=== PATIENT | female | born 1990 | race American Indian/Alaskan Native ===

== ENCOUNTER 2017-08-29 13:58 | Emergency (ER) | payer MEDICAID ==
[2017-08-29 16:01] LABS: Basophils % (Auto) 0.4 % (0.0-1.8); Eosinophils # (Auto) 0.1 K/mm3 (0.0-0.4); Eosinophils % (Auto) 1.4 % (0.0-4.3); Hematocrit 37.2 % (30.3-42.9); Hemoglobin 12.3 gm/dl (10.1-14.3); Lymphocytes # (Auto) 2.5 K/mm3 (1.2-5.4); Mean Corpuscular HGB Conc 33 % (30-34); Mean Corpuscular Hemoglobin 29 pg (28-32); Mean Corpuscular Volume 88 fl (79-97); Monocytes # (Auto) 0.6 K/mm3 (0.0-0.8); Platelet Count 180 K/mm3 (140-440); Red Blood Count 4.24 M/mm3 (3.65-5.03); Red Cell Distribution Width 13.4 % (13.2-15.2)
[2017-08-29 16:20] LABS: Alanine Aminotransferase 10 units/L (7-56); BUN/Creatinine Ratio 26; Blood Urea Nitrogen 13 mg/dL (7-17); Calcium 9.1 mg/dL (8.4-10.2); Hemolysis Index 27
[2017-08-29 16:20] LABS: Bacteria,Urine 3+ /HPF (Negative); Bilirubin,Urine NEG (Negative); Blood,Urine NEG (Negative); Color,Urine Yellow (Yellow); Hyaline Casts,Urine 1 /LPF; Mucus,Urine FEW /HPF; Nitrite,Urine NEG (Negative); Protein,Urine <15 mg/dL mg/dL (Negative)
--- NOTE | 2017-08-30 00:46 | Emergency Department Report ---
ED Abdominal Pain HPI - General Chief Complaint: Abdominal Pain Stated Complaint: ABDOMINAL PAIN Time Seen by Provider: 08/30/17 00:40 Source: patient Mode of arrival: Ambulatory Limitations: No Limitations - History of Present Illness Initial Comments: pt patient is a 26-year-old -[place] female who presents for abdominal pain 3 weeks pain described as aching and intermittent patient states intermittent nausea and vomiting primarily in a.m. there is no fever no chills no back pain no dysuria no urinary frequency last menstrual cycle 5 weeks ago patient states I may be patient is tolerating by mouth intake without nausea vomiting at this time MD Complaint: abdominal pain Onset/Timin -: week(s) Location: diffuse Radiation: none Migration to: no migration Severity: mild Severity scale (0 -10): 3 Quality: aching Consistency: intermittent Improves With: nothing Worsens With: nothing Associated Symptoms: nausea, vomiting. denies: diarrhea, fever, chills, constipation, dysuria, hematemesis, hematochezia, melena, hematuria, anorexia, syncope Treatments Prior to Arrival: NSAIDs - Related Data LMP Date: 08/02/17 LMP (females 10-50): 3 weeks Previous Rx's Medication Instructions Recorded Last Taken Type Ibuprofen [Motrin 800 MG tab] 800 mg PO Q8HR PRN #30 tablet 12/07/15 Unknown Rx Sulfamethoxazole/Trimethoprim 1 each PO BID #20 tablet 12/07/15 Unknown Rx [Bactrim DS TAB] metroNIDAZOLE [Flagyl] 500 mg PO Q12HR #14 tab 12/07/15 Unknown Rx Acetaminophen 650 mg PO QID PRN #30 tablet 08/30/17 Unknown Rx Allergies Allergy/AdvReac Type Severity Reaction Status Date / Time oranges Allergy Swelling Uncoded 12/07/15 13:17 ED Review of Systems ROS: Stated complaint: ABDOMINAL PAIN Other details as noted in HPI Constitutional: denies: chills, fever Eyes: denies: eye pain, eye discharge, vision change ENT: denies: ear pain, throat pain Respiratory: denies: cough, shortness of breath, wheezing Cardiovascular: denies: chest pain, palpitations Endocrine: no symptoms reported Gastrointestinal: nausea, vomiting. denies: abdominal pain, diarrhea, constipation, hematemesis, melena, hematochezia Genitourinary: denies: urgency, dysuria, discharge Musculoskeletal: denies: back pain, joint swelling, arthralgia Skin: denies: rash, lesions Neurological: denies: headache, weakness, paresthesias Psychiatric: denies: anxiety, depression Hematological/Lymphatic: denies: easy bleeding, easy bruising ED Past Medical Hx - Past Medical History Previous Medical History?: Yes Hx Asthma: Yes Additional medical history: Lupus - Surgical History Past Surgical History?: Yes Additional Surgical History: IUD removed - Social History Smoking Status: Current Every Day Smoker Substance Use Type: Alcohol - Medications Home Medications: Home Medications Medication Instructions Recorded Confirmed Last Taken Type Ibuprofen [Motrin 800 MG tab] 800 mg PO Q8HR PRN #30 tablet 12/07/15 Unknown Rx Sulfamethoxazole/Trimethoprim 1 each PO BID #20 tablet 12/07/15 Unknown Rx [Bactrim DS TAB] metroNIDAZOLE [Flagyl] 500 mg PO Q12HR #14 tab 12/07/15 Unknown Rx Acetaminophen 650 mg PO QID PRN #30 tablet 08/30/17 Unknown Rx ED Physical Exam - General Limitations: No Limitations General appearance: alert, in no apparent distress - Head Head exam: Present: atraumatic, normocephalic - Eye Eye exam: Present: normal appearance - ENT ENT exam: Present: mucous membranes moist - Neck Neck exam: Present: normal inspection - Respiratory Respiratory exam: Present: normal lung sounds bilaterally. Absent: respiratory distress - Cardiovascular Cardiovascular Exam: Present: regular rate, normal rhythm. Absent: systolic murmur, diastolic murmur, rubs, gallop - GI/Abdominal GI/Abdominal exam: Present: soft, normal bowel sounds. Absent: distended, tenderness, guarding, rebound, rigid, bruit, hernia - Rectal Rectal exam: Present: deferred - Extremities Exam Extremities exam: Present: normal inspection - Back Exam Back exam: Present: normal inspection - Neurological Exam Neurological exam: Present: alert, oriented X3, CN II-XII intact, normal gait, reflexes normal - Psychiatric Psychiatric exam: Present: normal affect, normal mood - Skin Skin exam: Present: warm, dry, intact, normal color. Absent: rash ED Course Vital Signs 08/29/17 14:58 Temperature 98.4 F Pulse Rate 83 Respiratory 20 Rate Blood Pressure 90/60 O2 Sat by Pulse 100 Oximetry ED Medical Decision Making - Lab Data Result diagrams: 08/29/17 15:05 01/09/18 15:05 Laboratory Tests 08/29/17 08/29/17 08/29/17 15:05 15:05 15:05 WBC 7.6 RBC 4.24 Hgb 12.3 Hct 37.2 MCV 88 MCH 29 MCHC 33 RDW 13.4 Plt Count 180 Lymph % (Auto) 32.0 [place] % (Auto) 8.0 H Eos % (Auto) 1.4 Baso % (Auto) 0.4 Lymph # 2.5 [place] # 0.6 Eos # 0.1 Baso # 0.0 Seg Neutrophils % 58.2 Seg Neutrophils # 4.5 Sodium 134 L Potassium 3.9 Chloride 99.9 Carbon Dioxide 22 Anion Gap 16 BUN 13 Creatinine 0.5 L Estimated GFR > 60 BUN/Creatinine Ratio 26 Glucose 84 Calcium 9.1 Total Bilirubin 0.30 AST 13 ALT 10 Alkaline Phosphatase 52 Total Protein 7.0 Albumin 4.0 Albumin/Globulin Ratio 1.3 HCG, Quant 56559 H Urine Color Urine Turbidity Urine pH Ur Specific [place] Urine Protein Urine Glucose (UA) Urine Ketones Urine Blood Urine Nitrite Urine Bilirubin Urine Urobilinogen Ur Leukocyte Esterase Urine WBC (Auto) Urine RBC (Auto) U Epithel Cells (Auto) Urine Bacteria (Auto) Hyaline Casts Urine Mucus 08/29/17 15:48 WBC RBC Hgb Hct MCV MCH MCHC RDW Plt Count Lymph % (Auto) [place] % (Auto) Eos % (Auto) Baso % (Auto) Lymph # [place] # Eos # Baso # Seg Neutrophils % Seg Neutrophils # Sodium Potassium Chloride Carbon Dioxide Anion Gap BUN Creatinine Estimated GFR BUN/Creatinine Ratio Glucose Calcium Total Bilirubin AST ALT Alkaline Phosphatase Total Protein Albumin Albumin/Globulin Ratio HCG, Quant Urine Color Yellow Urine Turbidity Clear Urine pH 7.0 Ur Specific [place] 1.017 Urine Protein <15 mg/dl Urine Glucose (UA) Neg Urine Ketones Neg Urine Blood Neg Urine Nitrite Neg Urine Bilirubin Neg Urine Urobilinogen 2.0 Ur Leukocyte Esterase Tr Urine WBC (Auto) 2.0 Urine RBC (Auto) 1.0 U Epithel Cells (Auto) 4.0 Urine Bacteria (Auto) 3+ Hyaline Casts 1 Urine Mucus Few - Medical Decision Making pt patient is a 26-year-old -[place] female who presents for abdominal pain 3 weeks pain described as aching and intermittent patient states intermittent nausea and vomiting primarily in a.m. there is no fever no chills no back pain no dysuria no urinary frequency last menstrual cycle 5 weeks ago patient states I may be patient is tolerating by mouth intake without nausea vomiting at this time exam: pt appears well nontoxic well hydrated and well nourished pt is eating at this time without n/v bs normal x 4 qds no rebound no bruit no hernia no fluid shift, no cva tenderness pt denies vaginal discharge no bleeding no dysuria frequency or urgency, cmp: normal, cbc: normal , ua: normal, hc pos preg test , plan: follow up with [facility] Dr. Ordonez, in 2-3 day or obgyn of choice to establish care, pt verbalized agreement and understanding of same, there is no vaginal bleeding non cramping no vaginal discharge no back pain, all symptoms are relieved at this time, per patient. Critical care attestation.: If time is entered above; I have spent that time in minutes in the direct care of this critically ill patient, excluding procedure time. ED Disposition Clinical Impression: Positive test Disposition: TO HOME OR SELFCARE Is pt being admited?: No Does the pt Need Aspirin: No Condition: Good Instructions: Abdominal Pain (ED) Prescriptions: Acetaminophen 650 mg PO QID PRN #30 tablet PRN Reason: pain Referrals: URIEL ORDONEZ MD [Staff Physician] - 3-5 Days Forms: Work/School Release Form(ED) Time of Disposition: 00:51
[2017-08-30 03:31] VITALS: BP 125/73
== END 2017-08-30 01:15 | disposition home or self-care (01) ==
LOC: ED 13:58
DX: O26.891 Other specified pregnancy related conditions, first trimester (principal); R11.2 Nausea with vomiting, unspecified; O99.331 Smoking (tobacco) complicating pregnancy, first trimester; Z91.018 Allergy to other foods; Z3A.01 Less than 8 weeks gestation of pregnancy
CPT/HCPCS: 36415; 80053; 81001; 84702; 85025; 99283

== ENCOUNTER 2017-08-31 14:03 | Emergency (ER) | payer MEDICAID ==
[2017-08-31] MEDS ORDERED: ZOFRAN ODT PO ONE (15:23)
[2017-08-31 21:07] LABS: Basophils % (Auto) 0.5 % (0.0-1.8); Eosinophils % (Auto) 0.4 % (0.0-4.3); Hematocrit 41.5 % (30.3-42.9); Hemoglobin 13.8 gm/dl (10.1-14.3); Lymphocytes # (Auto) 2.1 K/mm3 (1.2-5.4); Lymphocytes % (Auto) 28.9 % (13.4-35.0); Mean Corpuscular HGB Conc 33 % (30-34); Mean Corpuscular Hemoglobin 29 pg (28-32); Mean Corpuscular Volume 88 fl (79-97); Monocytes # (Auto) 0.6 K/mm3 (0.0-0.8); Monocytes % (Auto) 8.8 % (0.0-7.3); Platelet Count 204 K/mm3 (140-440); Red Cell Distribution Width 13.5 % (13.2-15.2)
[2017-08-31 21:37] LABS: Alanine Aminotransferase 10 units/L (7-56); Albumin 4.4 g/dL (3.9-5); BUN/Creatinine Ratio 24; Blood Urea Nitrogen 12 mg/dL (7-17); Calcium 9.7 mg/dL (8.4-10.2); Hemolysis Index 13
[2017-08-31 22:39] LABS: Bilirubin,Urine NEG (Negative); Blood,Urine SM (Negative); Color,Urine Yellow (Yellow); Mucus,Urine 1+ /HPF; Nitrite,Urine NEG (Negative); Protein,Urine <15 mg/dL mg/dL (Negative); RBC,Urine < 1.0 /HPF (0.0-6.0)
[2017-09-01] MEDS ORDERED: ZOFRAN ODT ONE (02:55)
[2017-09-01] MEDS ORDERED: ZOFRAN ODT PO ONE (03:13)
[2017-09-01] MEDS ORDERED: REGLAN IV ONE (10:58)
[2017-09-01] MEDS ORDERED: D5NS 1,000 ML IV SCH (11:00)
--- NOTE | 2017-09-01 13:33 | Emergency Department Report ---
Vomiting/Diarrhea - HPI Chief Complaint: Nausea/Vomiting/Diarrhea Stated Complaint: THROWING UP/ Time Seen by Provider: 09/01/17 10:54 Duration: 3 Days Severity: moderate Nausea/Vomiting Severity: Moderate Diarrhea Severity: None Pain Severity: None Symptoms: No Watery Diarrhea, No Fever, No Able to Tolerate Fluids, No Recent Unusual Foods, No Recent use of Antibiotics Other History: Patient is a 26-year-old F [place] female who is presenting with nausea and vomiting for the past several days. Patient is 6 weeks . Patient denies any vaginal discharge or vaginal bleeding dysuria at this time. Patient is just unable to keep anything down. 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 - Surgical History Additional Surgical History: IUD removed - Social History Smoking Status: Former Smoker Substance Use Type: None - Medications Home Medications: Home Medications Medication Instructions Recorded Confirmed Last Taken Type Ibuprofen [Motrin 800 MG tab] 800 mg PO Q8HR PRN #30 tablet 12/07/15 Unknown Rx Sulfamethoxazole/Trimethoprim 1 each PO BID #20 tablet 12/07/15 Unknown Rx [Bactrim DS TAB] metroNIDAZOLE [Flagyl] 500 mg PO Q12HR #14 tab 12/07/15 Unknown Rx Acetaminophen 650 mg PO QID PRN #30 tablet 08/30/17 Unknown Rx Ondansetron [Zofran Odt] 4 mg PO Q8HR #12 tab.rapdis 09/01/17 Unknown Rx Vomiting Diarrhea Exam - Exam General: Vital signs noted. No distress. Alert and acting appropriately. HEENT: Yes Moist Mucous Membranes, No Pharyngeal Erythema, No Pharyngeal Exudates, No Rhinorrhea, No Conjuctival Injection, No Frontal Tenderness, No Maxillary Tenderness Neck: No Adenopathy, No Rigidity Lungs: Yes Clear Lung Sounds, Yes Good Air Exchange, No Wheezes, No Stridor, No Cough, No Nasal Flaring, No Retractions, No Use of Accessory Muscles Heart exam: Regular: Yes, Murmur: No, Tachycardia: No Abdomen: Tenderness: No, Peritoneal Signs: No, Distention: No, Hyperactive Bowel sounds: No Skin exam: Rash: No, Edema: No, Normal turgor: Yes Neurologic: Alert and oriented, no deficits. Musculoskeletal: Unremarkable. ED Course Vital Signs 08/31/17 08/31/17 09/01/17 15:12 17:50 07:04 Temperature 98.2 F 98.1 F Pulse Rate 88 65 81 Respiratory 16 18 Rate Blood Pressure 112/67 98/69 O2 Sat by Pulse 98 100 100 Oximetry 09/01/17 09/01/17 09/01/17 07:09 07:12 08:00 Temperature 98.8 F Pulse Rate 71 Respiratory 20 18 Rate Blood Pressure 101/68 O2 Sat by Pulse Oximetry ED Medical Decision Making - Lab Data Result diagrams: 08/31/17 20:42 08/31/17 20:42 - Medical Decision Making Patient received several doses of antiemetics which has helped the vomiting patient did show ketones in her urine this is most likely the cause of her nausea vomiting. Patient is started on D5 normal saline bolus and will be discharged home. Critical care attestation.: If time is entered above; I have spent that time in minutes in the direct care of this critically ill patient, excluding procedure time. ED Disposition Clinical Impression: Hyperemesis arising during , Ketonuria, Positive test Disposition: DC-01 TO HOME OR SELFCARE Is pt being admited?: No Does the pt Need Aspirin: No Condition: Fair Prescriptions: Ondansetron [Zofran Odt] 4 mg PO Q8HR #12 tab.rapdis Referrals: PRIMARY CARE, [Primary Care Provider] - 3-5 Days
[2017-09-01 14:52] VITALS: BP 106/57
== END 2017-09-01 14:58 | disposition home or self-care (01) ==
LOC: ED 14:03
DX: O21.0 Mild hyperemesis gravidarum (principal); Z3A.01 Less than 8 weeks gestation of pregnancy; R82.4 Acetonuria; J45.909 Unspecified asthma, uncomplicated; Z87.891 Personal history of nicotine dependence
CPT/HCPCS: 36415; 80053; 81001; 84703; 85025; 96361; 96374; 99283; J2765; J7042; Q0162

== ENCOUNTER 2017-09-06 10:40 | Emergency (ER) | payer SELFPAY ==
[2017-09-06 11:07] VITALS: BP 104/63
[2017-09-06] MEDS ORDERED: NACL 0.9% 1000 ML 1,000 ML IV ONE (12:14)
[2017-09-06] MEDS ORDERED: ZOFRAN IV ONE (12:14)
[2017-09-06 13:00] LABS: Basophils % (Auto) 0.3 % (0.0-1.8); Eosinophils % (Auto) 0.3 % (0.0-4.3); Hematocrit 38.4 % (30.3-42.9); Lymphocytes % (Auto) 27.9 % (13.4-35.0); Mean Corpuscular HGB Conc 34 % (30-34); Mean Corpuscular Hemoglobin 30 pg (28-32); Mean Corpuscular Volume 88 fl (79-97); Monocytes # (Auto) 0.8 K/mm3 (0.0-0.8); Monocytes % (Auto) 11.1 % (0.0-7.3); Platelet Count 200 K/mm3 (140-440); Red Blood Count 4.39 M/mm3 (3.65-5.03); Red Cell Distribution Width 13.1 % (13.2-15.2)
--- NOTE | 2017-09-06 13:02 | Emergency Department Report ---
ED General Adult HPI - General Chief complaint: Nausea/Vomiting/Diarrhea Stated complaint: N/V Time Seen by Provider: 09/06/17 12:09 Source: patient Mode of arrival: Wheelchair Limitations: No Limitations - History of Present Illness Initial comments: There is a 26-year-old -[place] female presents for nausea and vomiting for past 6 weeks patient states 7 weeks at this point there is no no fever no chills patient seen in ED 3 for same complaint however cannot get anti -emetics secondary to financial concerns patient states symptoms are intermittent and exacerbated by by mouth intake last by mouth intake this a.m. has not vomiting 2 hours ago again no fever no chills no back pain or vaginal discharge no vaginal bleeding cramping patient is pending [employer] follow up states she does not have insurance or medicaid at this point. Onset/Timin -: week(s) Location: abdomen Radiation: non-radiation Severity scale (0 -10): 4 Quality: other (n/v ) Consistency: constant Improves with: other (phenergan / zofran) Worsens with: eating Associated Symptoms: nausea/vomiting. denies: confusion, chest pain, cough, diaphoresis, fever/chills, headaches, loss of appetite, malaise, rash, seizure, shortness of breath, syncope, weakness Treatments Prior to Arrival: none - Related Data Previous Rx's Medication Instructions Recorded Last Taken Type Ibuprofen [Motrin 800 MG tab] 800 mg PO Q8HR PRN #30 tablet 12/07/15 Unknown Rx Sulfamethoxazole/Trimethoprim 1 each PO BID #20 tablet 12/07/15 Unknown Rx [Bactrim DS TAB] metroNIDAZOLE [Flagyl] 500 mg PO Q12HR #14 tab 12/07/15 Unknown Rx Acetaminophen 650 mg PO QID PRN #30 tablet 08/30/17 Unknown Rx Ondansetron [Zofran Odt] 4 mg PO Q8HR #12 tab.rapdis 09/01/17 Unknown Rx Promethazine [Phenergan] 25 mg [place] BID PRN #12 supp.rect 09/06/17 Unknown Rx Allergies Allergy/AdvReac Type Severity Reaction Status Date / Time oranges Allergy Swelling Uncoded 08/31/17 15:12 ED Review of Systems ROS: Stated complaint: N/V Other details as noted in HPI Constitutional: denies: chills, fever Eyes: denies: eye pain, eye discharge, vision change ENT: denies: ear pain, throat pain Respiratory: denies: cough, shortness of breath, wheezing Cardiovascular: denies: chest pain, palpitations Endocrine: no symptoms reported Gastrointestinal: nausea, vomiting. 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 - Surgical History Additional Surgical History: IUD removed - Social History Smoking Status: Never Smoker Substance Use Type: None - Medications Home Medications: Home Medications Medication Instructions Recorded Confirmed Last Taken Type Ibuprofen [Motrin 800 MG tab] 800 mg PO Q8HR PRN #30 tablet 12/07/15 Unknown Rx Sulfamethoxazole/Trimethoprim 1 each PO BID #20 tablet 12/07/15 Unknown Rx [Bactrim DS TAB] metroNIDAZOLE [Flagyl] 500 mg PO Q12HR #14 tab 12/07/15 Unknown Rx Acetaminophen 650 mg PO QID PRN #30 tablet 08/30/17 Unknown Rx Ondansetron [Zofran Odt] 4 mg PO Q8HR #12 tab.rapdis 09/01/17 Unknown Rx Promethazine [Phenergan] 25 mg [place] BID PRN #12 supp.rect 09/06/17 Unknown Rx ED Physical Exam - General Limitations: No Limitations General appearance: alert, in no apparent distress - Head Head exam: Present: atraumatic, normocephalic - Eye Eye exam: Present: normal appearance - ENT ENT exam: Present: mucous membranes moist - Neck Neck exam: Present: normal inspection - Respiratory Respiratory exam: Present: normal lung sounds bilaterally. Absent: respiratory distress, wheezes, stridor - Cardiovascular Cardiovascular Exam: Present: regular rate, normal rhythm. Absent: systolic murmur, diastolic murmur, rubs, gallop - GI/Abdominal GI/Abdominal exam: Present: soft, normal bowel sounds. Absent: distended, tenderness, guarding, rebound, rigid, mass, bruit, hernia - Rectal Rectal exam: Present: deferred - Extremities Exam Extremities exam: Present: normal inspection, full ROM. Absent: tenderness - Back Exam Back exam: Present: normal inspection, full ROM. Absent: tenderness, CVA tenderness (R), CVA tenderness (L), muscle spasm, paraspinal tenderness, vertebral tenderness, rash noted - Neurological Exam Neurological exam: Present: alert, oriented X3, CN II-XII intact, normal gait, reflexes normal. Absent: motor sensory deficit - Psychiatric Psychiatric exam: Present: normal affect, normal mood - Skin Skin exam: Present: warm, dry, intact, normal color. Absent: rash ED Course Vital Signs 09/06/17 11:04 Temperature 98.4 F Pulse Rate 80 Respiratory 16 Rate Blood Pressure 104/63 O2 Sat by Pulse 100 Oximetry ED Medical Decision Making - Lab Data Result diagrams: 09/06/17 12:19 09/06/17 12:19 Laboratory Tests 09/06/17 09/06/17 09/06/17 12:19 12:19 12:19 WBC 7.2 RBC 4.39 Hgb 13.0 Hct 38.4 MCV 88 MCH 30 MCHC 34 RDW 13.1 L Plt Count 200 Lymph % (Auto) 27.9 [place] % (Auto) 11.1 H Eos % (Auto) 0.3 Baso % (Auto) 0.3 Lymph # 2.0 [place] # 0.8 Eos # 0.0 Baso # 0.0 Seg Neutrophils % 60.4 Seg Neutrophils # 4.3 Sodium 136 L Potassium 3.7 Chloride 98.0 Carbon Dioxide 22 Anion Gap 20 BUN 11 Creatinine 0.5 L Estimated GFR > 60 BUN/Creatinine Ratio 22 Glucose 78 Calcium 9.4 Total Bilirubin 0.50 AST 11 ALT 7 Alkaline Phosphatase 50 Total Protein 7.0 Albumin 3.9 Albumin/Globulin Ratio 1.3 HCG, Quant 07419 H Urine Color Urine Turbidity Urine pH Ur Specific [place] Urine Protein Urine Glucose (UA) Urine Ketones Urine Blood Urine Nitrite Urine Bilirubin Urine Urobilinogen Ur Leukocyte Esterase Urine WBC (Auto) Urine RBC (Auto) U Epithel Cells (Auto) Urine Bacteria (Auto) Urine Mucus 09/06/17 13:06 WBC RBC Hgb Hct MCV MCH MCHC RDW Plt Count Lymph % (Auto) [place] % (Auto) Eos % (Auto) Baso % (Auto) Lymph # [place] # Eos # Baso # Seg Neutrophils % Seg Neutrophils # Sodium Potassium Chloride Carbon Dioxide Anion Gap BUN Creatinine Estimated GFR BUN/Creatinine Ratio Glucose Calcium Total Bilirubin AST ALT Alkaline Phosphatase Total Protein Albumin Albumin/Globulin Ratio HCG, Quant Urine Color Yellow Urine Turbidity Clear Urine pH 5.0 Ur Specific [place] 1.020 Urine Protein <15 mg/dl Urine Glucose (UA) Neg Urine Ketones 80 Urine Blood Neg Urine Nitrite Neg Urine Bilirubin Neg Urine Urobilinogen 4.0 Ur Leukocyte Esterase Tr Urine WBC (Auto) 6.0 Urine RBC (Auto) 4.0 U Epithel Cells (Auto) 6.0 Urine Bacteria (Auto) 3+ Urine Mucus 3+ - Medical Decision Making pt is currently tolerating po intake without n/v discussed medication phenergan supp / zofran prn for n/v, OBGYN affiliation, pt will follow up Dr Brown. Aburto , will call tomorrow to setup appointment , use phenergan supp or zofran odt prn for n/v , hydrate as directed, and follow up with [employer]AM[employer]ER as directed, pt to complete medicaid processing starting tomorrow. Critical care attestation.: If time is entered above; I have spent that time in minutes in the direct care of this critically ill patient, excluding procedure time. ED Disposition Clinical Impression: Nausea and vomiting during prior to 22 weeks gestation Disposition: TO HOME OR SELFCARE Is pt being admited?: No Does the pt Need Aspirin: No Condition: Good Instructions: Acute Nausea and Vomiting (ED) Prescriptions: Promethazine [Phenergan] 25 mg [place] BID PRN #12 supp.rect PRN Reason: Nausea And Vomiting Referrals: PRIMARY CARE, [Primary Care Provider] - 3-5 Days Forms: Work/School Release Form(ED) Time of Disposition: 14:30
[2017-09-06 13:11] LABS: Alanine Aminotransferase 7 units/L (7-56); Albumin 3.9 g/dL (3.9-5); BUN/Creatinine Ratio 22; Blood Urea Nitrogen 11 mg/dL (7-17); Calcium 9.4 mg/dL (8.4-10.2); Hemolysis Index 11
[2017-09-06 13:23] LABS: Bacteria,Urine 3+ /HPF (Negative); Bilirubin,Urine NEG (Negative); Blood,Urine NEG (Negative); Color,Urine Yellow (Yellow); Mucus,Urine 3+ /HPF; Nitrite,Urine NEG (Negative); Protein,Urine <15 mg/dL mg/dL (Negative)
== END 2017-09-06 15:06 | disposition home or self-care (01) ==
LOC: ED 10:40
DX: O21.9 Vomiting of pregnancy, unspecified (principal); Z3A.01 Less than 8 weeks gestation of pregnancy; Z91.018 Allergy to other foods
CPT/HCPCS: 36415; 80053; 81001; 84702; 85025; 96361; 96374; 99283; J2405; J7030

== ENCOUNTER 2017-09-24 22:51 | Emergency (ER) | payer SELFPAY ==
[2017-09-25] MEDS ORDERED: NACL 0.9% 1000 ML 1,000 ML IV ONE ×2 (00:39→11:30)
[2017-09-25 01:04] LABS: Basophils % (Auto) 0.5 % (0.0-1.8); Eosinophils # (Auto) 0.1 K/mm3 (0.0-0.4); Eosinophils % (Auto) 0.8 % (0.0-4.3); Hematocrit 37.8 % (30.3-42.9); Hemoglobin 12.9 gm/dl (10.1-14.3); Lymphocytes # (Auto) 1.8 K/mm3 (1.2-5.4); Lymphocytes % (Auto) 21.3 % (13.4-35.0); Mean Corpuscular HGB Conc 34 % (30-34); Mean Corpuscular Hemoglobin 30 pg (28-32); Mean Corpuscular Volume 86 fl (79-97); Monocytes # (Auto) 0.7 K/mm3 (0.0-0.8); Monocytes % (Auto) 7.8 % (0.0-7.3); Platelet Count 238 K/mm3 (140-440); Red Blood Count 4.37 M/mm3 (3.65-5.03)
[2017-09-25 01:14] LABS: INR 0.97 (0.87-1.13)
[2017-09-25 01:15] LABS: Partial Thromboplastin Time 28.2 Sec. (24.2-36.6)
[2017-09-25 01:25] LABS: Alanine Aminotransferase 9 units/L (7-56); Albumin 3.7 g/dL (3.9-5); BUN/Creatinine Ratio 20; Blood Urea Nitrogen 8 mg/dL (7-17); Hemolysis Index 6; Lipase 6 units/L (13-60)
--- NOTE | 2017-09-25 02:51 | Ultrasound Report ---
FINAL REPORT EXAM: US OB < = 14 WEEKS FETUS HISTORY: vomiting blood, cramping, states 3 mon. TECHNIQUE: Transabdominal imaging was obtained of the pelvis along with Doppler interrogation of the uterus and adnexa FINDINGS: The uterus is anteverted measuring 13.2 cm x 6 cm x 9 cm. Within the uterus is a gestational sac containing an embryo yolk sac. The embryo measures 29 millimeters in length corresponding to a 9 week 5 day IUP. The heart is 170 BPM. There is no evidence of a subchorionic hemorrhage. Free fluid is not seen in the pelvis. The maternal left ovary is normal size and echotexture measuring 2.3 cm x 2 cm x 2 cm. The right ovary is enlarged measuring 8.8 cm x 7.9 cm x 6.9 cm. Within the right ovary is a septated cyst measuring 6.5 cm in diameter. There is no evidence of ovarian torsion. IMPRESSION: Single viable IUP, 9 weeks 5 days. heart is 170 BPM. Septated 6.5 cm cyst in the right ovary. No evidence of ovarian torsion
[2017-09-25] MEDS ORDERED: ZOFRAN IV ONE (11:10)
[2017-09-25] MEDS ORDERED: PEPCID IV ONE (11:12)
[2017-09-25] MEDS ORDERED: TYLENOL PO ONE (11:17)
[2017-09-25] MEDS ORDERED: NACL 0.9% 1000 ML 1,000 ML ONE (11:24)
--- NOTE | 2017-09-25 11:30 | Emergency Department Report ---
HPI - General Chief Complaint: Nausea/Vomiting/Diarrhea Time Seen by Provider: 09/25/17 11:08 - HPI HPI: The patient is a 26-year-old female , EGA 9 weeks, presents for evaluation of abdominal pain. The patient reports on and off epigastric abdominal pain for the past month, cramping in quality, 5/10 in severity currently, and is exacerbated with vomiting, and associated with recurrent severe nausea and nonbilious emesis for the same duration. The patient denies fever, chills, night sweats, chest pain, dyspnea, diarrhea, blood in the stool, dark tarry stool, dysuria, hematuria, flank pain, genital discharge, inability to pass flatus, easy bruising or bleeding, epistaxis, hemoptysis. ED Past Medical Hx - Past Medical History Previous Medical History?: Yes Hx Asthma: Yes Additional medical history: Lupus 5-6 weeks pregeant - Surgical History Past Surgical History?: Yes Additional Surgical History: IUD removed - Social History Smoking Status: Never Smoker - Medications Home Medications: Home Medications Medication Instructions Recorded Confirmed Last Taken Type Ibuprofen [Motrin 800 MG tab] 800 mg PO Q8HR PRN #30 tablet 12/07/15 Unknown Rx Sulfamethoxazole/Trimethoprim 1 each PO BID #20 tablet 12/07/15 Unknown Rx [Bactrim DS TAB] metroNIDAZOLE [Flagyl] 500 mg PO Q12HR #14 tab 12/07/15 Unknown Rx Acetaminophen 650 mg PO QID PRN #30 tablet 08/30/17 Unknown Rx Ondansetron [Zofran Odt] 4 mg PO Q8HR #12 tab.rapdis 09/01/17 Unknown Rx Promethazine [Phenergan] 25 mg KS BID PRN #12 supp.rect 09/06/17 Unknown Rx Acetaminophen [Tylenol] 1,000 mg PO Q6HR #30 tablet 09/25/17 Unknown Rx Ondansetron [Zofran TAB] 4 mg PO Q8HR PRN #30 tablet 09/25/17 Unknown Rx Pnv No.95/Ferrous Fum/Folic AC 1 each PO QDAY #31 tablet 09/25/17 Unknown Rx [ Vitamin Tablet] ED Review of Systems ROS: Stated complaint: VOMITING BLOOD/ Other details as noted in HPI Constitutional: denies: fever ENT: denies: throat or neck pain Respiratory: denies: cough, shortness of breath Cardiovascular: denies: chest pain Endocrine: denies unexplained weight loss or gain Gastrointestinal: reports abdominal pain, nausea, vomiting Genitourinary: denies: dysuria Musculoskeletal: denies: leg swelling Skin: denies: rash Neurological: denies: headache Hematological/Lymphatic: denies: easy bleeding or easy bruising Psych: denies sadness or hopelessness Physical Exam - Physical Exam Vital Signs: Vital Signs 09/25/17 00:33 Temperature 98.8 F Pulse Rate 84 Respiratory 18 Rate Blood Pressure 111/73 O2 Sat by Pulse 100 Oximetry Physical Exam: General: well-nourished, well-developed, no acute distress Head: Normocephalic, atraumatic Eyes: normal sclera ENT: Mucous membranes are pale and dry Neck: No neck stiffness, no cervical adenopathy Respiratory: Breath sounds equal bilaterally, no wheezing, rales, or rhonchi Cardio: S1 and S2 present, no murmurs, rubs, gallops, capillary refill is delayed Abdomen: Normoactive bowel sounds, soft abdomen, epigastric tenderness to palpation present, no rigidity, no guarding or rebound tenderness Chest WALL/Back: No tenderness to palpation of the chest wall, no CVA tenderness with percussion Musc: No pitting edema Skin: No rash Neuro: no facial drooping, normal speech Psych: Normal affect ED Course Vital Signs 09/25/17 00:33 Temperature 98.8 F Pulse Rate 84 Respiratory 18 Rate Blood Pressure 111/73 O2 Sat by Pulse 100 Oximetry ED Medical Decision Making - Lab Data Result diagrams: 09/25/17 00:47 09/25/17 00:47 - Medical Decision Making The patient was seen and examined by myself. The patient is placed on a monitor car operator and continuous pulse ox. On initial evaluation, the patient was found to be in no distress. Evaluation orders are placed. IV access is established and the patient is given 1 L normal saline fluid bolus and Zofran for nausea, and Tylenol for her pain. Lab results exhibited elevated hCG level, and mild hyponatremia and hypochloremia, and otherwise labs were non-concerning including WBC, hemoglobin, hematocrit, coags, platelet level, renal function, LFTs, lipase, and urinalysis. Ultrasound of the pelvis reveals a live intrauterine prednisone and 9 weeks EGA with normal heart rate, and was negative for ovarian torsion or ectopic . The patient was reevaluated and reported that their symptoms were markedly improved. The patient is stable for discharge with outpatient follow-up. The patient is given follow-up and return instructions. The patient expressed understanding and agreed with the plan. The patient is discharged in stable condition. Critical care attestation.: If time is entered above; I have spent that time in minutes in the direct care of this critically ill patient, excluding procedure time. ED Disposition Clinical Impression: Nausea and vomiting during prior to 22 weeks gestation, Dehydration, mild, Abdominal pain, acute, epigastric Disposition: DC- TO HOME OR SELFCARE Is pt being admited?: No Does the pt Need Aspirin: No Condition: Stable Instructions: Hyperemesis Gravidarum (ED), Abdominal Pain in (ED) Referrals: PRIMARY CAREM[facility] [Primary Care Provider] - 3-5 Days ALIA OROSCO MD [Staff Physician] - 3-5 Days [facility] [Provider Group] - 3-5 Days Time of Disposition: 11:25
[2017-09-25 12:20] VITALS: BP 108/64
== END 2017-09-25 12:19 | disposition home or self-care (01) ==
LOC: ED 22:51
DX: O26.892 Other specified pregnancy related conditions, second trimester (principal); R10.13 Epigastric pain; Z3A.22 22 weeks gestation of pregnancy
CPT/HCPCS: 36415; 76801; 80053; 83690; 84702; 85025; 85610; 85730; 86850; 86900; 86901; 93005; 93010; 96361; 96374; 96375; 99284; J2405; J7030